=== PATIENT | female | born 1980 | race Two or more races ===

== ENCOUNTER 2017-02-24 09:39 | Emergency (ER) | payer OTHER ==
[~2017-02-24] VITALS: Ht 160 cm; Wt 86.6 kg
[2017-02-24 12:06] VITALS: BP 133/85
== END 2017-02-24 12:06 | disposition home or self-care (01) ==
LOC: ED 09:39
DX: J03.90 Acute tonsillitis, unspecified (principal); I10 Essential (primary) hypertension; Z79.899 Other long term (current) drug therapy
CPT/HCPCS: J0696; J1100